=== PATIENT | male | born 1995 | race Caucasian/White ===

== ENCOUNTER 2017-12-17 22:59 | Emergency (ER) | payer OTHER ==
[2017-12-18] MEDS ORDERED: METAL LOCK LOOP XX (01:10)
[2017-12-18] MEDS: LIDOCAINE 1% MDV 20ML VIAL IM (01:42)
[2017-12-18] MEDS: AUGMENTIN 875 MG TAB PO (02:25)
== END 2017-12-18 02:37 | disposition home or self-care (01) ==
LOC: M ED 22:59
DX: S01.311A Laceration without foreign body of right ear, initial encounter (principal); Y28.0XXA Contact with sharp glass, undetermined intent, initial encounter; Y92.89 Other specified places as the place of occurrence of the external cause
CPT/HCPCS: 12013